=== PATIENT | male | born 1975 | race Caucasian/White ===

== ENCOUNTER 2024-03-16 16:21 | Outpatient (CLI) | payer OTHER | END 2024-03-16 23:59 | disposition home or self-care (01) | LOC: RAD 16:21 | PROVIDERS: ATTEND Student in an Organized Health Care Education/Training Program | DX: I26.99 Other pulmonary embolism without acute cor pulmonale (principal); D86.0 Sarcoidosis of lung | CPT/HCPCS: 71046 ==